=== PATIENT | female | born 1945 | race Caucasian/White ===

== ENCOUNTER 2017-07-01 07:59 | Day surgery (SDC) | payer OTHER ==
[2017-07-01] MEDS ORDERED: ALCAINE or OPHTHETIC 1 DOSE AFFEYE ONE (08:10)
[2017-07-01] MEDS ORDERED: AK-DILATE 10% OPHTH 1 DOSE AFFEYE ONE ×3 (08:11→08:13)
[2017-07-01] MEDS ORDERED: MYDRIACIL OPHTH 1 DOSE AFFEYE ONE ×3 (08:11→08:13)
[2017-07-01] MEDS ORDERED: TETRACAINE 0.5% OPHTH 1 DOSE AFFEYE ONE (08:40)
[2017-07-01 10:53] VITALS: BP 166/76
== END 2017-07-01 08:50 | disposition home or self-care (01) ==
LOC: SURG1 07:59
PROVIDERS: ATTEND Ophthalmology
PROC: 085E3ZZ Destruction of Right Retina, Percutaneous Approach (ICD-10-PCS; principal; 2017-07-01 05:30)
DX: E11.3311 Type 2 diabetes mellitus with moderate nonproliferative diabetic retinopathy with macular edema, right eye (principal)

== ENCOUNTER 2017-08-05 07:49 | Day surgery (SDC) | payer OTHER ==
[2017-08-05] MEDS ORDERED: TETRACAINE 0.5% OPHTH 1 DOSE AFFEYE ONE ×2 (07:55→08:27)
[2017-08-05] MEDS ORDERED: AK-DILATE 2.5% OPHTH 1 DOSE AFFEYE ONE (08:00)
[2017-08-05] MEDS ORDERED: MYDRIACIL OPHTH 1 DOSE AFFEYE ONE (08:00)
[2017-08-05 12:26] VITALS: BP 144/68
== END 2017-08-05 08:40 | disposition home or self-care (01) ==
LOC: SURG1 07:49
PROVIDERS: ATTEND Ophthalmology
PROC: 085F3ZZ Destruction of Left Retina, Percutaneous Approach (ICD-10-PCS; principal; 2017-08-05 09:00)
DX: E11.3312 Type 2 diabetes mellitus with moderate nonproliferative diabetic retinopathy with macular edema, left eye (principal)